=== PATIENT | female | born 2000 | race Caucasian/White ===

== ENCOUNTER 2020-02-18 20:09 | Emergency (ER) | payer MEDICAID, OTHER ==
[~2020-02-18] VITALS: Ht 154.9 cm; Wt 88.0 kg
[2020-02-18 20:17] VITALS: BP 135/82
--- NOTE | 2020-02-18 20:17 | NUR ---
PT AMUBLATED TO BED 2 WITH STEADY GAIT
--- NOTE | 2020-02-18 20:30 | NUR ---
19 Y/O FEMALE C/O RASH X 2 WEEKS - STARTED W/ SMALL BUMPS ON RIGHT SIDE OF RIGHT BREAST AND HAS PROGRESSIVELY GROWN ACROSS RIGHT BREAST. PT C/O 10/10 BURNING PAIN , ITCHINESS AND NUMBNESS AND TINGLING IN RIGHT ARM. PMH: DENIES , +CHICKEN POX NKA
[2020-02-18 20:55] VITALS: BP 135/82
--- NOTE | 2020-02-18 20:55 | NUR ---
Patient discharged with v/s stable. Written and verbal after care instructions given and explained. Patient alert, oriented and verbalized understanding of instructions. Ambulatory with steady gait. All questions addressed prior to discharge. ID band removed. Patient advised to follow up with PMD. Rx of NORCO/NAPROSYN/ACYCLOVIR given. Patient educated on indication of medication including possible reaction and side effects. Opportunity to ask questions provided and answered.
== END 2020-02-18 20:55 | disposition home or self-care (01) ==
LOC: MED 20:09
DX: B02.9 Zoster without complications (principal); Z86.19 Personal history of other infectious and parasitic diseases
CPT/HCPCS: 99283

== ENCOUNTER 2020-11-29 23:08 | Emergency (ER) | payer MEDICAID ==
[~2020-11-29] VITALS: Ht 154.9 cm; Wt 81.2 kg
[2020-11-29 23:15] VITALS: BP 136/90
--- NOTE | 2020-11-29 23:26 | NUR ---
PATIENT 20 Y/O FEMALE BIB SELF FOR C/O ESCOBEDO 10/10 PAIN AND PELVIC CRAMPING 7/10 PAIN X 1 DAY. PATIENT STATES BEGAN TO FEEL PAIN S/P RECIVING THE 2ND MODERNA SHOT. PATIENT STATES SHE IS 8 WEEKS . PATIENT HAS HX OF MISCARRIAGE. PATIENT P2L0. PATIENT DENIES VAGINAL BLEEDING OR ABNORMAL DISCHARGE. PATIENT DENIES N/V, OR BLURRED VISION. MEDHX: MELANIA JOLENE II ALLERGIES: NKA
--- NOTE | 2020-11-29 23:26 | NUR ---
PT AMBULATED TO BED 05.
--- NOTE | 2020-11-29 23:30 | NUR ---
LAB AT BEDSIDE.
--- NOTE | 2020-11-29 23:43 | NUR ---
[facility] Pool at bedside for medical evaluation.
[2020-11-29 23:47] LABS: BASOPHILS % (AUTO) 0.4 % (0.0-2.0); EOSINOPHILS # (AUTO) 0.1 K/uL (0-0.4); EOSINOPHILS % (AUTO) 1.8 % (0.0-4.0); HEMATOCRIT 39.8 % (36-48); HEMOGLOBIN 13.4 g/dL (12.0-16.0); LYMPHOCYTES # (AUTO) 1.9 K/uL (2.5-16.5); LYMPHOCYTES % (AUTO) 28.7 % (20.5-51.1); MEAN CORPUSCULAR HEMOGLOBIN 28 pg (27-31); MEAN CORPUSCULAR HGB CONC 34 g/dL (33-37); MEAN CORPUSCULAR VOLUME 83.3 fL (80-94); MONOCYTES # (AUTO) 0.6 K/uL (0.8-1.0); MONOCYTES % (AUTO) 8.3 % (1.7-9.3); NEUTROPHILS % (AUTO) 60.8 % (42.2-75.2); PLATELET COUNT (AUTO) 208 K/uL (140-450); RED BLOOD CELL COUNT(AUTO) 4.78 MIL/uL (4.20-5.40); RED CELL DISTRIBUTION WIDTH 13.8 % (11.6-13.7); WHITE BLOOD COUNT (AUTO) 6.6 K/uL (4.5-11.0)
--- NOTE | 2020-11-30 00:04 | NUR ---
ULTRASOUND AT BEDSIDE.
[2020-11-30 00:06] LABS: APPEARANCE,URINE CLEAR (CLEAR); BILIRUBIN,URINE NEGATIVE (NEGATIVE); BLOOD, URINE 2+ (NEGATIVE); COLOR,URINE YELLOW (YELLOW); LEUKOCYTE ESTERASE ,URINE 1+ (NEGATIVE); NITRITE, URINE NEGATIVE (NEGATIVE); PH,URINE 5.5 (5.0-9.0); UGLUCOSE 3+ (NEGATIVE)
[2020-11-30 00:14] LABS: RBC,URINE 0-5 /HPF (0-5); WBC,URINE 20-60 /HPF (0-5)
[2020-11-30] MEDS ORDERED: ACETAMINOPHEN EXTRA STRENGTH 500 MG TAB PO ONE (00:30)
[2020-11-30] MEDS ORDERED: NITR100C7 PO (00:32)
--- NOTE | 2020-11-30 01:06 | NUR ---
Patient states pain reduced from 10/10 to 2/10 in pelvic area. Patient states ESCOBEDO pain 0/10 at this time.
[2020-11-30 01:45] VITALS: BP 128/78
== END 2020-11-30 01:45 | disposition home or self-care (01) ==
LOC: MED 23:08
DX: O20.0 Threatened abortion (principal); O23.41 Unspecified infection of urinary tract in pregnancy, first trimester; E11.9 Type 2 diabetes mellitus without complications; Z3A.01 Less than 8 weeks gestation of pregnancy
CPT/HCPCS: 36415; 76817; 81001; 81025; 84702; 85025; 86900; 86901; 87086; 99284

== ENCOUNTER 2020-12-05 09:41 | Emergency (ER) | payer MEDICAID ==
[~2020-12-05] VITALS: Ht 154.9 cm; Wt 80.3 kg
[~2020-12-05 09:41] MED LIST: NITR100C7 PO
[2020-12-05 09:45] VITALS: BP 122/77
--- NOTE | 2020-12-05 09:55 | NUR ---
PT AMBULATED TO BED 12, STEADY GAIT.
--- NOTE | 2020-12-05 09:56 | NUR ---
PT AMBULATED TO BATHROOM, STEADY GAIT.
--- NOTE | 2020-12-05 09:59 | NUR ---
20/F presents to ED with c/o hematuria and lower abdominal pain. Patient states she was seen here one week ago and diagnosed with UTI, patient states she has had constant abdominal pain since UTI dx. Patient states when she used the restroom this morning she noticed bright red blood in her urine. Patient states she took Tylenol last night with no relief. Patient denies dysuria, denies vomiting/diarrhea. Patient states she has nausea with 8/10 sharp lower abdominal pain. Patient states to be 8 weeks , A1.
--- NOTE | 2020-12-05 10:23 | NUR ---
LAB AT BEDSIDE FOR BLOOD DRAW
[2020-12-05] MEDS ORDERED: NACL 0.9% 1,000 ML IV ONE (10:25)
[2020-12-05 10:34] LABS: BASOPHILS # (AUTO) 0.1 K/uL (0.00-0.22); BASOPHILS % (AUTO) 0.8 % (0.0-2.0); EOSINOPHILS # (AUTO) 0.3 K/uL (0-0.4); EOSINOPHILS % (AUTO) 3.5 % (0.0-4.0); HEMATOCRIT 38.9 % (36-48); LYMPHOCYTES # (AUTO) 2.5 K/uL (2.5-16.5); LYMPHOCYTES % (AUTO) 27.5 % (20.5-51.1); MEAN CORPUSCULAR HEMOGLOBIN 28 pg (27-31); MEAN CORPUSCULAR HGB CONC 34 g/dL (33-37); MEAN CORPUSCULAR VOLUME 83.8 fL (80-94); MONOCYTES # (AUTO) 0.5 K/uL (0.8-1.0); MONOCYTES % (AUTO) 5.5 % (1.7-9.3); NEUTROPHILS # (AUTO) 5.8 K/uL (1.8-7.7); NEUTROPHILS % (AUTO) 62.7 % (42.2-75.2); PLATELET COUNT (AUTO) 229 K/uL (140-450); RED BLOOD CELL COUNT(AUTO) 4.64 MIL/uL (4.20-5.40); RED CELL DISTRIBUTION WIDTH 13.7 % (11.6-13.7); WHITE BLOOD COUNT (AUTO) 9.2 K/uL (4.5-11.0)
--- NOTE | 2020-12-05 10:37 | NUR ---
Ultrasound at bedside
[2020-12-05 10:41] LABS: ANION GAP 16.3 (8-16); CARBON DIOXIDE 22.6 mmol/L (21-32); CREATININE 0.6 mg/dL (0.6-1.3); POTASSIUM 3.9 mmol/L (3.5-5.1)
[2020-12-05 11:11] LABS: BILIRUBIN,URINE NEGATIVE (NEGATIVE); BLOOD, URINE TRACE-I (NEGATIVE); COLOR,URINE YELLOW (YELLOW); LEUKOCYTE ESTERASE ,URINE TRACE (NEGATIVE); NITRITE, URINE NEGATIVE (NEGATIVE); PH,URINE 5.5 (5.0-9.0); UGLUCOSE 3+ (NEGATIVE)
[2020-12-05] MEDS ORDERED: INSULIN REGULAR, HUMAN 100 UNIT/ML VIAL IVP ONE (11:15)
[2020-12-05 11:25] LABS: APPEARANCE,URINE SLIGHTLY HAZY (CLEAR)
[2020-12-05 11:30] LABS: RBC,URINE NONE SEEN /HPF (0-5)
[2020-12-05 11:31] LABS: WBC,URINE 20-60 /HPF (0-5)
--- NOTE | 2020-12-05 11:55 | NUR ---
Accucheck rechecked 249, Dr. Pool made aware.
[2020-12-05] MEDS ORDERED: MICO100S9 VG (12:04)
--- NOTE | 2020-12-05 12:15 | NUR ---
Patient discharged with v/s stable. Written and verbal after care instructions given and explained. Patient alert, oriented and verbalized understanding of instructions. Ambulatory with steady gait. All questions addressed prior to discharge. ID band removed. Patient advised to follow up with PMD. Rx of Miconazole given. Patient educated on indication of medication including possible reaction and side effects. Opportunity to ask questions provided and answered.
[2020-12-05 12:19] VITALS: BP 122/77
== END 2020-12-05 12:15 | disposition home or self-care (01) ==
LOC: MED 09:41
DX: O20.0 Threatened abortion (principal); O24.419 Gestational diabetes mellitus in pregnancy, unspecified control; E11.65 Type 2 diabetes mellitus with hyperglycemia; Z3A.08 8 weeks gestation of pregnancy; Z79.899 Other long term (current) drug therapy
CPT/HCPCS: 36415; 76817; 80048; 81001; 81025; 84702; 85025; 86900; 86901; 87086; 96361; 96374; 99284; J1815; J7030

== ENCOUNTER 2021-01-22 17:16 | Emergency (ER) | payer SELFPAY ==
[~2021-01-22] VITALS: Ht 154.9 cm; Wt 81.6 kg
[~2021-01-22 17:16] MED LIST changes: +MICO100S9 VG
[2021-01-22 17:18] VITALS: BP 130/78
[2021-01-22] MEDS ORDERED: SODIUM CHLORIDE FLUSH 10 ML SYR IVF STA (17:24)
--- NOTE | 2021-01-22 17:27 | NUR ---
PT ASKED TO WAIT IN LOBBY.
--- NOTE | 2021-01-22 17:28 | NUR ---
URINE SPECIMEN CUP GIVEN TO PATIENT
[2021-01-22 17:40] LABS: BASOPHILS % (AUTO) 0.3 % (0.0-2.0); EOSINOPHILS # (AUTO) 0.3 K/uL (0-0.4); EOSINOPHILS % (AUTO) 3.5 % (0.0-4.0); HEMATOCRIT 36.8 % (36-48); HEMOGLOBIN 12.4 g/dL (12.0-16.0); LYMPHOCYTES # (AUTO) 3.3 K/uL (2.5-16.5); LYMPHOCYTES % (AUTO) 34.8 % (20.5-51.1); MEAN CORPUSCULAR HEMOGLOBIN 27 pg (27-31); MEAN CORPUSCULAR HGB CONC 34 g/dL (33-37); MEAN CORPUSCULAR VOLUME 80.8 fL (80-94); MONOCYTES # (AUTO) 0.7 K/uL (0.8-1.0); MONOCYTES % (AUTO) 7.2 % (1.7-9.3); NEUTROPHILS # (AUTO) 5.2 K/uL (1.8-7.7); NEUTROPHILS % (AUTO) 54.2 % (42.2-75.2); PLATELET COUNT (AUTO) 229 K/uL (140-450); RED BLOOD CELL COUNT(AUTO) 4.55 MIL/uL (4.20-5.40); RED CELL DISTRIBUTION WIDTH 13.1 % (11.6-13.7); WHITE BLOOD COUNT (AUTO) 9.6 K/uL (4.5-11.0)
--- NOTE | 2021-01-22 17:42 | NUR ---
PT AMBULATED TO BED 1
[2021-01-22 17:55] LABS: ALBUMIN 3.5 g/dL (3.4-5.0); ANION GAP 11.8 (8-16); CARBON DIOXIDE 25.8 mmol/L (21-32); CREATININE 0.6 mg/dL (0.6-1.3); POTASSIUM 3.6 mmol/L (3.5-5.1); TOTAL BILIRUBIN 0.2 mg/dL (0.0-1.0)
--- NOTE | 2021-01-22 18:25 | NUR ---
20YO F C/O WORSENING RIGHT LOWER ABDOMINAL PAIN X 1 WEEK THAT RADIATES TO HER UPPER CHEST AND BACK. PT NOTED PAIN INVOLVING RUQ THIS AM. 10/10 SHARP AGGRAVATED BY MEALS. WITH N/V THIS AM. NO MEDICATIONS TAKEN. PT HAS MISCARRIAGE LAST DECEMBER 15, 2020. PT STATES PAIN ALSO WORENS WHEN SHE USES THE RESTROOM. LAST BM 01/22/21. PT STATES TENDERNESS FELT UPON PALPATION ON RUQ AND RLQ PMH:NONE MEDS: NONE NKA
[2021-01-22] MEDS ORDERED: ACETAMINOPHEN 325 MG TAB PO ONE (18:45)
[2021-01-22] MEDS ORDERED: NACL 0.9% 1,000 ML IV ONE (18:45)
--- NOTE | 2021-01-22 19:10 | NUR ---
Report received from ROSIE Dodge for continuation of care.
--- NOTE | 2021-01-22 19:13 | NUR ---
Pt report given to ROSIE ROSE. Transfer of care at this time.
--- NOTE | 2021-01-22 19:45 | NUR ---
Patient laying in bed locked in lowest position, x1 side rail up breathing even and unlabored. Patient denies any n/v, abdominal pain at this time. Bowel sounds present throughout all quadrants, non-tender to touch at this time. NAD noted, will continue to monitor.
[2021-01-22] MEDS ORDERED: IBUPROFEN 400 MG TAB PO ONE (21:15)
[2021-01-22] MEDS ORDERED: METF-938 PO (21:24)
--- NOTE | 2021-01-22 21:35 | NUR ---
Patient does not wish to proceed with medical care recommended by . Patient given information related to possible complications, up to and including , which could occur as a result of leaving hospital at this time. Patient verbalizes understanding of risks involved leaving against medical advice. Patient has signed AMA form.
[2021-01-22 21:37] VITALS: BP 137/80
[2021-01-22 21:53] LABS: APPEARANCE,URINE CLEAR (CLEAR); BILIRUBIN,URINE NEGATIVE (NEGATIVE); BLOOD, URINE 3+ (NEGATIVE); COLOR,URINE YELLOW (YELLOW); LEUKOCYTE ESTERASE ,URINE TRACE (NEGATIVE); NITRITE, URINE NEGATIVE (NEGATIVE); UGLUCOSE 3+ (NEGATIVE)
[2021-01-22 22:05] LABS: WBC,URINE 20-60 /HPF (0-5); YEAST,URINE Few /HPF (None Seen)
== END 2021-01-22 21:35 | disposition left against medical advice (07) ==
LOC: MED 17:16
DX: E11.65 Type 2 diabetes mellitus with hyperglycemia (principal); R10.11 Right upper quadrant pain; R11.10 Vomiting, unspecified
CPT/HCPCS: 36415; 80053; 81001; 81025; 82009; 83690; 85025; 87086; 96360; 99283; J7030

== ENCOUNTER 2021-03-22 06:55 | Emergency (ER) | payer MEDICAID ==
[~2021-03-22] VITALS: Ht 154.9 cm; Wt 78.6 kg
[~2021-03-22 06:55] MED LIST changes: +METF-938 PO
[2021-03-22 07:05] VITALS: BP 145/84
--- NOTE | 2021-03-22 07:05 | NUR ---
TO BED AMBULATORY
--- NOTE | 2021-03-22 07:25 | NUR ---
DR. LOZANO BEDSIDE EVALUATING PT
[2021-03-22] MEDS ORDERED: NAPR-54 PO (07:28)
[2021-03-22] MEDS ORDERED: KETOROLAC 30 MG/ML VIAL IM ONE (07:30)
--- NOTE | 2021-03-22 07:30 | NUR ---
20 Y FEMALE WITH C/O CHEST PAIN X12 HRS. PT STATED SHE STARTED TO EXPERINCE CHEST PAIN LAST NIGHT THAT HAS WORSEN OVER NIGHT. PT STATES THE PAIN RADIATES FROM HER CHEST REGION TO HER L SHOULDER/JAW REGION. CLEAR BREATH SOUNDS AND S1/S2 HEARD. PMH: MELANIA POWELL
--- NOTE | 2021-03-22 07:53 | NUR ---
xray bedside with pt
--- NOTE | 2021-03-22 08:55 | NUR ---
pt resting in bed on her phone. vital signs stable and pt denies any pain at this moment. bed in lowest position with siderail x1 up. bed in lowest position. will continue to monitor
[2021-03-22 09:15] VITALS: BP 128/74
--- NOTE | 2021-03-22 09:15 | NUR ---
Patient discharged with v/s stable. Written and verbal after care instructions about chest wall pain given and explained. Patient alert, oriented and verbalized understanding of instructions. Ambulatory with steady gait. All questions addressed prior to discharge. ID band removed. Patient advised to follow up with PMD. Rx of naproxen given. Patient educated on indication of medication including possible reaction and side effects. Opportunity to ask questions provided and answered.
== END 2021-03-22 09:15 | disposition home or self-care (01) ==
LOC: MED 06:55
DX: R07.89 Other chest pain (principal); R20.2 Paresthesia of skin; E11.9 Type 2 diabetes mellitus without complications
CPT/HCPCS: 71045; 93005; 96372; 99283; J1885

== ENCOUNTER 2022-08-28 12:55 | Emergency (ER) | payer MEDICAID, OTHER ==
[~2022-08-28] VITALS: Ht 154.9 cm; Wt 78.1 kg
[~2022-08-28 12:55] MED LIST changes: +NAPR-54 PO
[2022-08-28 13:09] VITALS: BP 146/94
--- NOTE | 2022-08-28 13:25 | NUR ---
22YO FEMALE PT C/O INCREASED L BREAST PAIN [id number]. REPORTS "BUMP" ON NIPPLE X1.5MONTHS W/ PENDING MAMMOGRAM. STATES UNPROVOKED BURNING AND ACHING INTERMITTENT EPISODES W/ RADIATION TO L UNDERARM/SHOULDER . BREAST W/O VISIBLE DEFORMITY. NOTES RECENT NAUSEA, FATIGUENESS AND WEIGHT LOSS. DENIES CHEST PAIN, DRAINAGE, N/V , FEVER, CHILLS, SOB OR INJURY. PT AAOX4, NO VISIBLE DISTRESS. HOB POSITIONED PER COMFORT. HX:DIABETES NKA
--- NOTE | 2022-08-28 13:33 | NUR ---
PT TAKEN TO XRAY VIA WHEELCHAIR
--- NOTE | 2022-08-28 13:37 | NUR ---
PT BROUGHT BACK VIA WHEELCHAIR
--- NOTE | 2022-08-28 14:01 | NUR ---
LAB AT BEDSIDE
[2022-08-28 14:26] LABS: BASOPHILS % (AUTO) 0.3 % (0.0-2.0); EOSINOPHILS # (AUTO) 0.4 K/uL (0-0.4); EOSINOPHILS % (AUTO) 4.5 % (0.0-4.0); HEMATOCRIT 40.9 % (36-48); HEMOGLOBIN 13.7 g/dL (12.0-16.0); LYMPHOCYTES # (AUTO) 2.8 K/uL (2.5-16.5); LYMPHOCYTES % (AUTO) 33.2 % (20.5-51.1); MEAN CORPUSCULAR HEMOGLOBIN 27 pg (27-31); MEAN CORPUSCULAR HGB CONC 34 g/dL (33-37); MEAN CORPUSCULAR VOLUME 80.9 fL (80-94); MONOCYTES # (AUTO) 0.5 K/uL (0.8-1.0); MONOCYTES % (AUTO) 6.1 % (1.7-9.3); NEUTROPHILS # (AUTO) 4.7 K/uL (1.8-7.7); NEUTROPHILS % (AUTO) 55.9 % (42.2-75.2); PLATELET COUNT (AUTO) 225 K/uL (140-450); RED BLOOD CELL COUNT(AUTO) 5.05 MIL/uL (4.20-5.40); RED CELL DISTRIBUTION WIDTH 13.9 % (11.6-13.7); WHITE BLOOD COUNT (AUTO) 8.3 K/uL (4.8-10.8)
[2022-08-28 14:26] LABS: APPEARANCE,URINE CLEAR (CLEAR); BILIRUBIN,URINE NEGATIVE (NEGATIVE); BLOOD, URINE LARGE (NEGATIVE); COLOR,URINE YELLOW (YELLOW); LEUKOCYTE ESTERASE ,URINE TRACE (NEGATIVE); NITRITE, URINE NEGATIVE (NEGATIVE); PH,URINE 5.5 (5.0-9.0); UGLUCOSE 3+ (NEGATIVE)
[2022-08-28 14:43] LABS: RBC,URINE 11-20 (MOD) /HPF (0-5)
[2022-08-28 14:44] LABS: OTHER CASTS, URINE None Seen /LPF (None Seen)
[2022-08-28 15:05] LABS: ACETONE, SERUM NEGATIVE (NEGATIVE); ALBUMIN 3.9 g/dL (3.4-5.0); ANION GAP 12.9 (8-16); ASPARTATE AMINOTRANSFERASE 22 U/L (15-37); CHLORIDE 101 mmol/L (98-107); CREATININE 0.6 mg/dL (0.6-1.3); GFR ARICAN-AMERICAN 161 mL/min (>90); GLUCOSE 267 mg/dL (74-106); POTASSIUM 3.9 mmol/L (3.5-5.1); SODIUM SERUM 136 mmol/L (136-145); TOTAL BILIRUBIN 0.3 mg/dL (0.0-1.0); UREA NITROGEN, BLOOD 10 mg/dL (7-18)
[2022-08-28] MEDS ORDERED: CEPH-588 PO (15:14)
[2022-08-28 15:33] VITALS: BP 130/87
--- NOTE | 2022-08-28 15:33 | NUR ---
Patient discharged with v/s stable. Written and verbal after care instructions FOR HYPERGLYCEMIA, CHEST PAIN, BREAST TENDERNESS AND UTI given and explained. Patient alert, oriented and verbalized understanding of instructions. Ambulatory with steady gait. All questions addressed prior to discharge. ID band removed. Patient advised to follow up with PMD. Rx of KEFLEX given. Opportunity to ask questions provided and answered.
--- NOTE | 2022-08-28 15:34 | NUR ---
The patient's care was reviewed and supervised by Vanna Obregon RN.
== END 2022-08-28 15:33 | disposition home or self-care (01) ==
LOC: MED 12:55
DX: R07.9 Chest pain, unspecified (principal); N64.4 Mastodynia; E11.65 Type 2 diabetes mellitus with hyperglycemia; N39.0 Urinary tract infection, site not specified; R03.0 Elevated blood-pressure reading, without diagnosis of hypertension; Z79.84 Long term (current) use of oral hypoglycemic drugs; Z79.899 Other long term (current) drug therapy
CPT/HCPCS: 36415; 71046; 80053; 81001; 81025; 82009; 82948; 83880; 84484; 85025; 87086; 93005; 99285